=== PATIENT | female | born 1970 | race Caucasian/White ===

== ENCOUNTER 2017-10-31 07:25 | Day surgery (SDC) | payer BC ==
[~2017-10-31 07:25] MED LIST: SUCCINYLCHOLINE CHLORIDE 100 MG/5 ML SYG IV
[2017-10-31] MEDS ORDERED: ROCURONIUM 50 MG INJ (08:44)
[2017-10-31] MEDS ORDERED: MIDAZOLAM 1 MG/ML 2 ML INJ (08:44)
[2017-10-31] MEDS ORDERED: FENTAnyl 50 MCG/ML VIAL (08:44)
[2017-10-31] MEDS ORDERED: PROPOFOL 20 ML (08:44)
[2017-10-31] MEDS ORDERED: ONDANSETRON 4 MG INJ (08:44)
[2017-10-31] MEDS ORDERED: NEOSTIGMINE 3 MG/3 ML SYRINGE (08:44)
[2017-10-31] MEDS ORDERED: LIDOCAINE 2% (SDV) 5 ML INJ (08:44)
[2017-10-31] MEDS ORDERED: DEXAMETHASONE 4 MG/ML 1 ML INJ (08:44)
[2017-10-31] MEDS ORDERED: GLYCOPYRROLATE 0.4 MG INJ (08:44)
[2017-10-31] MEDS ORDERED: SUGAMMADEX SODIUM 200 MG/2 ML VIAL IV (09:57)
[2017-10-31] MEDS: LACTATED RINGER'S 1,000 ML IV ×2 (10:01→12:16)
[2017-10-31] MEDS ORDERED: LIDOCAINE 1% (MPF) 30 ML INJ (10:30)
[2017-10-31] MEDS ORDERED: morphine 2 MG INJ IV (10:30)
[2017-10-31] MEDS ORDERED: NEOMYC/POLYMYX/BACIT 30 GM OINT (10:31)
[2017-10-31] MEDS ORDERED: morphine (1 MG/ML) 10ML SYRINGE IV ×3 (11:00)
[2017-10-31] MEDS ORDERED: HYDROmorphONE 1 MG/5 ML IV SYRINGE IV (11:00)
[2017-10-31] MEDS ORDERED: ATROPINE 1 MG/10 ML SYRINGE IV (11:00)
[2017-10-31] MEDS ORDERED: hydrALAzine 20 MG INJ IV (11:00)
[2017-10-31] MEDS ORDERED: DIPHENHYDRAMINE 50 MG INJ IV (11:00)
[2017-10-31] MEDS ORDERED: OXYCODONE/ACETAMINOPHEN (5/325) TAB PO (11:00)
[2017-10-31] MEDS ORDERED: MEPERIDINE 25 MG INJ IV (11:00)
[2017-10-31] MEDS ORDERED: FENTAnyl 50 MCG/ML VIAL IV ×2 (11:00)
[2017-10-31] MEDS ORDERED: LABETALOL HCL 20MG INJ IV (11:00)
[2017-10-31] MEDS ORDERED: EPHEDrine SULFATE 50 MG/5 ML SYG IV (11:00)
[2017-10-31] MEDS ORDERED: MIDAZOLAM 1 MG/ML 2 ML INJ IV (11:00)
[2017-10-31] MEDS ORDERED: hydrALAzine 20 MG INJ (11:12)
[2017-10-31] MEDS ORDERED: LABETALOL HCL 20MG INJ (11:12)
[2017-10-31] MEDS: morphine SULFATE/PF (10 MG/10 ML) INJ (11:21)
[2017-10-31] MEDS: ROPIVACAINE 0.5 % 30 ML VIAL (11:21)
[2017-10-31] MEDS: HYDROmorphONE 1 MG/5 ML IV SYRINGE IV ×2 (12:11→12:25)
[2017-10-31] MEDS: ONDANSETRON 4 MG INJ IV (12:26)
[2017-10-31] MEDS: OXYCODONE/ACETAMINOPHEN (5/325) TAB PO (13:18)
== END 2017-10-31 14:37 | disposition home or self-care (01) ==
LOC: SDS 07:25
DX: M23.222 Derangement of posterior horn of medial meniscus due to old tear or injury, left knee (principal); M94.262 Chondromalacia, left knee; E11.9 Type 2 diabetes mellitus without complications
CPT/HCPCS: 29881; 71045; 82306; 82962

== ENCOUNTER 2017-11-08 10:58 | Emergency (ER) | payer BC | END 2017-11-08 13:39 | disposition home or self-care (01) | LOC: FTE 10:58 | DX: I82.402 Acute embolism and thrombosis of unspecified deep veins of left lower extremity (principal); I10 Essential (primary) hypertension; E11.9 Type 2 diabetes mellitus without complications; Z79.84 Long term (current) use of oral hypoglycemic drugs; Z98.890 Other specified postprocedural states | CPT/HCPCS: 93971; 99284-25 ==

== ENCOUNTER 2018-02-12 07:42 | Emergency (ER) | payer BC ==
[2018-02-12] MEDS: KETOROLAC 30 MG INJ IM (08:33)
== END 2018-02-12 09:31 | disposition home or self-care (01) ==
LOC: FTE 07:42
DX: M75.31 Calcific tendinitis of right shoulder (principal); E11.9 Type 2 diabetes mellitus without complications; I10 Essential (primary) hypertension; E03.9 Hypothyroidism, unspecified; Z79.01 Long term (current) use of anticoagulants; Z79.84 Long term (current) use of oral hypoglycemic drugs
CPT/HCPCS: 73030; 73030-RT; 96372; 99284-25

== ENCOUNTER 2018-03-02 10:50 | Observation (INO) | payer BC ==
[2018-03-02 11:43] LABS: ADD MAN DIFF? NO
[2018-03-02 11:46] LABS: BASOPHILS % 0.3 % (0.0-2.0); EOSINOPHILS # 0.1 10^3/ul (0.0-0.5); EOSINOPHILS % 1.9 % (0.0-7.0); HEMATOCRIT 26.5 % (37.0-47.0); HEMOGLOBIN 7.8 g/dl (12.0-16.0); LYMPHOCYTES % 43.6 % (15.0-51.0); MEAN CORPUSCULAR HEMOGLOBIN 21.3 pg (29.0-33.0); MEAN CORPUSCULAR HGB CONC 29.4 g/dl (32.0-37.0); MEAN CORPUSCULAR VOLUME 72.2 fl (82.0-101.0); MEAN PLATELET VOLUME 10.2 fl (7.4-10.4); MONOCYTE # 0.6 10^3/ul (0.3-0.9); MONOCYTES % 8.8 % (0.0-11.0); NEUTROPHIL # 3.1 10^3/ul (1.6-7.5); NEUTROPHILS % 45.1 % (39.0-77.0); PLATELET COUNT 485 10^3/UL (140-415); RED BLOOD COUNT 3.67 10^6/ul (4.20-5.40); RED CELL DISTRIBUTION WIDTH 15.6 % (11.5-14.5)
[2018-03-02 11:46] LABS: WHITE BLOOD COUNT 6.8 10^3/ul (4.8-10.8)
[2018-03-02 12:06] LABS: INR 1.48; PT RATIO 1.4
[2018-03-02 12:07] LABS: PARTIAL THROMBOPLASTIN TIME 33.9 Sec (23.0-35.0)
[2018-03-02 12:08] LABS: ALANINE AMINOTRANSFERASE 20 IU/L (13-69); ALBUMIN 4.1 g/dl (3.3-4.9); ALBUMIN/GLOBULIN RATIO 1.17; ALKALINE PHOSPHATASE 80 IU/L (42-121); ANION GAP 6 (5-13); ASPARTATE AMINO TRANSFERASE 27 IU/L (15-46); BILIRUBIN,INDIRECT 0.1 mg/dl (0-1.1); BILIRUBIN,TOTAL 0.1 mg/dl (0.2-1.3); BLOOD UREA NITROGEN 13 mg/dl (7-20); CALCIUM 10.1 mg/dl (8.4-10.2); CARBON DIOXIDE 26 mmol/L (21-31); CHLORIDE 109 mmol/L (97-110); CREATININE 0.87 mg/dl (0.44-1.00); Estimated GFR > 60 mL/min (>60); GLUCOSE 125 mg/dl (70-220); POTASSIUM 4.6 mmol/L (3.5-5.1); SODIUM 141 mmol/L (135-144); TOTAL PROTEIN 7.6 g/dl (6.1-8.1)
[2018-03-02 12:09] LABS: D-DIMER 255.66 ng/ml (<460)
[2018-03-02 12:20] LABS: B-TYPE NATRIURETIC PEPTIDE 32 PG/ML (0-125); TROPONIN-I < 0.012 ng/ml (0.000-0.120)
[2018-03-02] MEDS: SOD CHLORIDE 0.9% 100 ML (13:01)
[2018-03-02] MEDS: IOHEXOL 300MG/ML 150 ML BTL (13:01)
[2018-03-02] MEDS ORDERED: ONDANSETRON 4 MG INJ IV (14:00)
[2018-03-02] MEDS ORDERED: ACETAMINOPHEN 325 MG TAB PO (14:00)
[2018-03-02] MEDS ORDERED: NACL 0.9% 3 ML SYG IV (15:30)
[2018-03-02 16:04] LABS: IRON 17 ug/dl (35-150)
[2018-03-02 16:13] LABS: % IRON SATURATION 4 % SAT (22-52); TOTAL IRON BINDING CAPACITY 469 ug/dl (241-421)
[2018-03-02 16:15] LABS: TROPONIN-I < 0.012 ng/ml (0.000-0.120)
[2018-03-02 16:39] LABS: FERRITIN 3.8 ng/ml (6.2-137.0)
[2018-03-02] MEDS: PANTOPRAZOLE 40 MG INJ IV (16:50)
[2018-03-02 19:20] LABS: IMMEDIATE SPIN CROSSMATCH 1 1
[2018-03-02] MEDS ORDERED: DEXTROSE 50% 50 ML SYRINGE IV ×2 (22:30)
[2018-03-02] MEDS ORDERED: GLUCOSE GEL 15 GRAM TUBE BUCCAL (22:30)
[2018-03-02] MEDS: INSULIN ASPART [NOVOLOG] 3 ML PEN SC (22:30)
[2018-03-02] MEDS ORDERED: GLUCOSE GEL 15 GRAM TUBE PO ×2 (22:30)
[2018-03-02] MEDS ORDERED: GLUCAGON 1 MG INJ IM (22:30)
[2018-03-02] MEDS: SOD FERRIC GLUC COMPLX 125 MG in SOD CHLORIDE 0.9% 100 ML IVPB (22:34)
[2018-03-03 06:21] LABS: ADD MAN DIFF? NO
[2018-03-03 06:30] LABS: BASOPHILS % 0.4 % (0.0-2.0); EOSINOPHILS # 0.1 10^3/ul (0.0-0.5); HEMATOCRIT 28.4 % (37.0-47.0); HEMOGLOBIN 8.5 g/dl (12.0-16.0); LYMPHOCYTES # 2.9 10^3/ul (0.8-2.9); LYMPHOCYTES % 40.1 % (15.0-51.0); MEAN CORPUSCULAR HGB CONC 29.9 g/dl (32.0-37.0); MEAN CORPUSCULAR VOLUME 73.4 fl (82.0-101.0); MEAN PLATELET VOLUME 10.6 fl (7.4-10.4); MONOCYTE # 0.7 10^3/ul (0.3-0.9); MONOCYTES % 10.1 % (0.0-11.0); NEUTROPHIL # 3.4 10^3/ul (1.6-7.5); NEUTROPHILS % 47.1 % (39.0-77.0); PLATELET COUNT 436 10^3/UL (140-415); RED BLOOD COUNT 3.87 10^6/ul (4.20-5.40); RED CELL DISTRIBUTION WIDTH 16.3 % (11.5-14.5)
[2018-03-03 06:30] LABS: WHITE BLOOD COUNT 7.1 10^3/ul (4.8-10.8)
[2018-03-03 07:05] LABS: ALANINE AMINOTRANSFERASE 21 IU/L (13-69); ALBUMIN 3.8 g/dl (3.3-4.9); ALBUMIN/GLOBULIN RATIO 1.08; ALKALINE PHOSPHATASE 73 IU/L (42-121); ANION GAP 11 (5-13); ASPARTATE AMINO TRANSFERASE 23 IU/L (15-46); BILIRUBIN,INDIRECT 0.4 mg/dl (0-1.1); BILIRUBIN,TOTAL 0.4 mg/dl (0.2-1.3); BLOOD UREA NITROGEN 12 mg/dl (7-20); CALCIUM 9.9 mg/dl (8.4-10.2); CARBON DIOXIDE 26 mmol/L (21-31); CHLORIDE 106 mmol/L (97-110); CREATININE 0.66 mg/dl (0.44-1.00); Estimated GFR > 60 mL/min (>60); GLUCOSE 134 mg/dl (70-220); POTASSIUM 4.7 mmol/L (3.5-5.1); SODIUM 143 mmol/L (135-144); TOTAL PROTEIN 7.3 g/dl (6.1-8.1)
[2018-03-03 07:21] LABS: HEMOGLOBIN A1C 6.5 % (0-5.9)
[2018-03-03 07:37] LABS: THYROID STIMULATING HORMONE 0.129 MIU/L (0.465-4.680)
[2018-03-03] MEDS: INSULIN ASPART [NOVOLOG] 3 ML PEN SC ×2 (07:55→11:50)
[2018-03-03] MEDS: SOD FERRIC GLUC COMPLX 125 MG in SOD CHLORIDE 0.9% 100 ML IVPB (12:53)
[2018-03-03] MEDS ORDERED: LABETALOL HCL 20MG INJ IV (14:30)
[2018-03-03] MEDS ORDERED: HYDROmorphONE 1 MG/5 ML IV SYRINGE IV ×2 (14:30)
[2018-03-03] MEDS ORDERED: ONDANSETRON 4 MG INJ IV (14:30)
[2018-03-03] MEDS ORDERED: hydrALAzine 20 MG INJ IV (14:30)
[2018-03-03] MEDS: PROPOFOL 20 ML (14:59)
== END 2018-03-03 18:17 | disposition home or self-care (01) ==
LOC: E/R 10:50 → TEL 13:57
DX: D50.9 Iron deficiency anemia, unspecified (principal); E11.9 Type 2 diabetes mellitus without complications; I10 Essential (primary) hypertension; Z79.84 Long term (current) use of oral hypoglycemic drugs
CPT/HCPCS: 36415; 36430; 71275; 76856; 80053; 82728; 82962; 83036; 83540; 83880; 84443; 84484; 84703; 85025; 85378; 85610; 85730; 86850; 86900; 86901; 86920; 88305; 93005; 93306; 93971; 99285-25; G0378

== ENCOUNTER 2018-11-04 15:41 | Emergency (ER) | payer BC | END 2018-11-04 17:54 | disposition home or self-care (01) | LOC: E/R 15:41 | DX: S39.92XA Unspecified injury of lower back, initial encounter (principal); I10 Essential (primary) hypertension; E11.9 Type 2 diabetes mellitus without complications; E03.9 Hypothyroidism, unspecified; X50.0XXA Overexertion from strenuous movement or load, initial encounter; Y92.9 Unspecified place or not applicable; Z79.84 Long term (current) use of oral hypoglycemic drugs | CPT/HCPCS: 72100; 99283-25 ==